=== PATIENT | male | born 1995 | race Caucasian/White ===

== ENCOUNTER 2017-05-16 06:39 | Emergency (ER) | payer SELFPAY ==
[~2017-05-16] VITALS: Ht 200.7 cm; Wt 104.8 kg
[~2017-05-16 06:39] MED LIST: RISP1 PO
[2017-05-16 06:43] VITALS: BP 118/73; PULSE 112; RESP 16; TEMP 98.6; O2SAT 98
[2017-05-16] MEDS ORDERED: SODIUM CHLOR 0.9% 1000 ML INJ 1,000 ML IV SCH (07:47)
--- NOTE | 2017-05-16 07:53 | PD ---
HPI Chief Complaint: Cold / Flu Symptoms Time Seen by Provider: 07:44 Travel History International Travel<30 days: No Contact w/Intl Traveler<30days: No Traveled to known affect area: No History of Present Illness HPI 21-year-old male complains of persistent cough and nausea vomiting. Patient states the cough started several days ago. Patient started a persistent vomiting since last night. Patient complained of mild epigastric discomfort. Patient denies any dysuria frequency. Patient denies any diarrhea. Patient complaint chest wall pain, body ache. PFSH Past Medical History ADD: Yes ADHD: Yes Weight (Kg): 3 Depression: Yes Cancer: No Cardiovascular Problems: No Diabetes: No Diminished Hearing: No Headaches: No Psychiatric: Yes (ADHD, ADD) Immunizations Current: Yes Migraines: No Seizures: No Thyroid Disease: No Ulcer: No Past Surgical History Section: No Other Surgery: No Social History Alcohol Use: No Tobacco Use: No Substance Use: No (marijuanna 1-2 times per week ) Allergies-Medications (Allergen,Severity, Reaction): Coded Allergies: No Known Allergies (Verified Adverse Reaction, Unknown, 05/16/17) Reported Meds & Prescriptions Reported Meds & Active Scripts Active No Active Prescriptions or Reported Medications Review of Systems General / Constitutional: No: Fever Eyes: No: Visual changes HENT: No: Headaches Cardiovascular: No: Chest Pain or Discomfort Respiratory: Positive: Cough, No: Shortness of Breath Gastrointestinal: Positive: Nausea, Vomiting, No: Abdominal Pain Genitourinary: No: Dysuria Musculoskeletal: No: Pain Skin: No Rash Neurologic: No: Weakness Psychiatric: No: Depression Endocrine: No: Polydipsia Hematologic/Lymphatic: No: Easy Bruising Physical Exam Narrative GENERAL: Well-nourished, well-developed patient. SKIN: Focused skin assessment warm/dry. HEAD: Normocephalic. EYES: No scleral icterus. No injection or drainage. Throat: Nonerythematous. NECK: Supple, trachea midline. No JVD or lymphadenopathy. CARDIOVASCULAR: Regular rate and rhythm without murmurs, gallops, or rubs. RESPIRATORY: Breath sounds equal bilaterally. No accessory muscle use. GASTROINTESTINAL: Abdomen soft, nondistended. Patient has mild tenderness on palpation epigastric area. No rebound tenderness. No mass. MUSCULOSKELETAL: No cyanosis, or edema. BACK: Nontender without obvious deformity. No CVA tenderness. Data Data Last Documented VS Vital Signs Date Time Temp Pulse Resp B/P (MAP) Pulse Ox O2 Delivery O2 Flow Rate FiO2 05/16/17 08:22 99 Room Air 05/16/17 06:43 98.6 112 16 Orders Orders Complete Blood Count With Diff (05/16/17 07:47) Comprehensive Metabolic Panel (05/16/17 07:47) Iv Access Insert/Monitor (05/16/17 07:47) Ecg Monitoring (05/16/17 07:47) Oximetry (05/16/17 07:47) Ondansetron Inj (Zofran Inj) (05/16/17 08:00) Sodium Chlor 0.9% 1000 Ml Inj (Ns 1000 M (05/16/17 07:47) Sodium Chloride 0.9% Flush (Ns Flush) (05/16/17 08:00) Influenzae A/B Antigen (05/16/17 07:47) Chest, Single Ap (05/16/17 07:51) Labs Laboratory Tests Test 05/16/17 08:19 White Blood Count 7.7 TH/MM3 Red Blood Count 5.30 MIL/MM3 Hemoglobin 15.4 GM/DL Hematocrit 45.5 % Mean Corpuscular Volume 85.7 FL Mean Corpuscular Hemoglobin 29.0 PG Mean Corpuscular Hemoglobin Concent 33.8 % Red Cell Distribution Width 11.8 % Platelet Count 177 TH/MM3 Mean Platelet Volume 11.5 FL Neutrophils (%) (Auto) 88.5 % Lymphocytes (%) (Auto) 6.0 % Monocytes (%) (Auto) 4.8 % Eosinophils (%) (Auto) 0.5 % Basophils (%) (Auto) 0.2 % Neutrophils # (Auto) 6.8 TH/MM3 Lymphocytes # (Auto) 0.5 TH/MM3 Monocytes # (Auto) 0.4 TH/MM3 Eosinophils # (Auto) 0.0 TH/MM3 Basophils # (Auto) 0.0 TH/MM3 CBC Comment DIFF FINAL Differential Comment Blood Urea Nitrogen 17 MG/DL Creatinine 1.10 MG/DL Random Glucose 103 MG/DL Total Protein 8.4 GM/DL Albumin 4.3 GM/DL Calcium Level 9.4 MG/DL Alkaline Phosphatase 88 U/L Aspartate Amino Transf (AST/SGOT) 11 U/L Alanine Aminotransferase (ALT/SGPT) 18 U/L Total Bilirubin 0.7 MG/DL Sodium Level 140 MEQ/L Potassium Level 3.7 MEQ/L Chloride Level 105 MEQ/L Carbon Dioxide Level 27.6 MEQ/L Anion Gap 7 MEQ/L Estimat Glomerular Filtration Rate 85 ML/MIN MDM Medical Decision Making Medical Screen Exam Complete: Yes Emergency Medical Condition: Yes Interpretation(s) Last Impressions Chest X-Ray 05/16/17 0751 Signed Impressions: Service Date/Time: May 07:55 - CONCLUSION: No acute cardiopulmonary disease. Won Ventura MD 8:55 AM. CBC within normal limits. WBC 7.7. 88 neutrophil. CMP within normal limits. Influenza A positive. Differential Diagnosis Differential diagnoses including viral syndrome, bronchitis, pneumonia, gastritis, PUD, pancreatitis, colitis, UTI, pyelonephritis. Narrative Course 21-year-old male with coughing nausea vomiting abdominal pain body ache chest wall pain. Diagnosis Primary Impression: Influenza A Patient Instructions: General Instructions Additional Instructions: Take medications as directed. Tylenol ibuprofen for aching pain and fever. Follow-up with personal physician. Return to persistent problem or worse. Med/Other Pt SpecificInfo: Prescription(s) given Scripts Ondansetron Odt (Zofran Odt) 4 Mg Tab 4 MG SL Q6HR Y for Nausea/Vomiting, #10 TAB 0 Refills Prov: Feliberto Cuello MD 05/16/17 Oseltamivir (Tamiflu) 75 Mg Cap 75 MG PO BID for Mgmt Viral Infection, #10 CAP 0 Refills Prov: Feliberto Cuello MD 05/16/17 Disposition: 01 DISCHARGE HOME Condition: Stable Feliberto Cuello MD May 16, 2017 07:53
[2017-05-16] MEDS ORDERED: SODIUM CHLORIDE 0.9% FLUSH 10 ML FLUSH IV FLUSH PRN (08:00)
[2017-05-16] MEDS ORDERED: ONDANSETRON HCL 4 MG/2 ML VIAL IVP ONE (08:00)
[2017-05-16 08:22] VITALS: O2SAT 99
[2017-05-16 08:31] LABS: AUTOMATED NEUTROPHIL # 6.8 TH/MM3 (1.8-7.7); BASOPHIL % 0.2 % (0.0-2.0); EOSINOPHIL % 0.5 % (0.0-4.0); HEMATOCRIT 45.5 % (39.0-51.0); HEMOGLOBIN 15.4 GM/DL (13.0-17.0); LYMPHOCYTE # 0.5 TH/MM3 (1.0-4.8); MEAN CELL VOLUME 85.7 FL (80.0-100.0); MEAN CORPUSCULAR HGB CONC 33.8 % (32.0-36.0); MEAN PLATELET VOLUME 11.5 FL (7.0-11.0); MONO % 4.8 % (0.0-8.0); MONOCYTE # 0.4 TH/MM3 (0-0.9); NEUT % 88.5 % (16.0-70.0); PLATELET COUNT 177 TH/MM3 (150-450); RED CELL DISTRIBUTION WIDTH 11.8 % (11.6-17.2); WHITE BLOOD COUNT 7.7 TH/MM3 (4.0-11.0)
--- NOTE | 2017-05-16 08:32 | RADRPT ---
EXAM DATE/TIME: 05/16/2017 07:55 [facility] COMPARISON: No previous studies available for comparison. INDICATIONS : Cough, chest wall pain, nausea, vomiting. MEDICAL HISTORY : None. SURGICAL HISTORY : None. ENCOUNTER: Initial ACUITY: 3 days PAIN SCORE: 7/10 LOCATION: Bilateral chest FINDINGS: A single view of the chest demonstrates the lungs to be symmetrically aerated without evidence of mas s, infiltrate or effusion. The cardiomediastinal contours are unremarkable. Osseous structures are intact. CONCLUSION: No acute cardiopulmonary disease. Won Ventura MD on May 16, 2017 at 8:07 Board Certified Radiologist. This report was verified electronically.
[2017-05-16 08:39] LABS: CHLORIDE 105 MEQ/L (98-107); SODIUM (NA) 140 MEQ/L (136-145)
[2017-05-16 08:42] LABS: ALBUMIN 4.3 GM/DL (3.4-5.0); BICARBONATE 27.6 MEQ/L (21.0-32.0); BLOOD UREA NITROGEN 17 MG/DL (7-18); CALCIUM 9.4 MG/DL (8.5-10.1); GLUCOSE,RANDOM 103 MG/DL (74-106)
[2017-05-16 08:45] LABS: ALT (GPT) 18 U/L (9-52)
[2017-05-16 08:46] LABS: AST (GOT) 11 U/L (15-39); GLOMERULAR FILTRATION RATE 85 ML/MIN (>89)
[2017-05-16 08:47] LABS: TOTAL BILIRUBIN ADULT 0.7 MG/DL (0.2-1.0); TOTAL PROTEIN 8.4 GM/DL (6.4-8.2)
[2017-05-16 08:48] LABS: ALKALINE PHOSPHATASE 88 U/L (45-117)
[2017-05-16] MEDS ORDERED: OSEL75 PO (08:58)
[2017-05-16] MEDS ORDERED: ZOFR4TAB3 SL (08:58)
== END 2017-05-16 09:23 | disposition home or self-care (01) ==
LOC: PHED 06:39
DX: J10.1 Influenza due to other identified influenza virus with other respiratory manifestations (principal); R11.2 Nausea with vomiting, unspecified; R07.89 Other chest pain; F90.9 Attention-deficit hyperactivity disorder, unspecified type
CPT/HCPCS: 71045; 80053; 85025; 87804; 96374; 99284; J2405; J7030